=== PATIENT | female | born 1995 | race Caucasian/White ===

== ENCOUNTER 2019-02-13 07:40 | Emergency (ER) | payer OTHER ==
[2019-02-13] MEDS: DIPHTH/TET/ACEL PERTUSS (ADULT) 0.5 ML VIAL IM* (08:17)
== END 2019-02-13 08:25 | disposition home or self-care (01) ==
LOC: FTE 07:40
DX: S81.001A Unspecified open wound, right knee, initial encounter (principal); S81.002A Unspecified open wound, left knee, initial encounter; V48.9XXA Unspecified car occupant injured in noncollision transport accident in traffic accident, initial encounter; Z23 Encounter for immunization
CPT/HCPCS: 90471; 90715; 99283-25